=== PATIENT | female | born 1990 | race Caucasian/White ===

== ENCOUNTER 2016-06-20 10:37 | Emergency (ER) | payer BC, MEDICAID ==
[~2016-06-20] VITALS: Ht 162.6 cm; Wt 54.4 kg
[~2016-06-20 10:37] MED LIST: AMARYL 2MG TABLE2 MG PO; AMARYL 4MG. TAB4 MG PO; AMOXICILLIN &500 MG PO; AMOXICILLIN 50500 MG PO; ANUSOL-HC25 M1 RC; ASPIRIN 81MG TA81 MG PO; BACTRIM DS 8001 TA1 PO; BACTRIM DS 8001 TAB PO; BACTROBAN2% TP; BENADRYL 50MG C50 MG PO; BUSPAR 5MG TAB5 MG PO; CIPROFLOXACIN500 MG PO; DARVOCET-N 1001 EACH PO; DICLOFENAC 50MG50 MG PO; DIFLUCAN 100MG100 MG PO; DOCUSATE SODIU100 MG PO; FAMOTIDINE10 MG PO; FLAGYL500 M1 PO; FLEXERIL10 M1 PO; FLONASE 50 MCG16 GM; FOLIC ACID 1MG T1 MG PO; GLIMEPIRIDE 2MG2 MG PO; GLYNASE PO; HUMALOG100 U/M1 SC; HUMALOG100 U/ML SC; HUMULIN 70100 UNITS/ SC; HYDROCORTISONE1% EX; IBUPROFEN400 MG PO; INDERAL 20MG. T20 MG PO; IRON TABLETS325 MG PO; KEFLEX 500MG.500 MG PO; LACTULOSE10 GM/15 M PO; LANTUS INS100 UNITS/ SC; LEVAQUIN500 MG PO; LEVEMIR100 U/ML SC; LORTAB 5/500 501 TAB PO; MEDROL 4MG. DOSE4 MG PO; METFORMIN500 MG PO; METOPROLOL50 MG PO; MIRALAX17 GM/PACK PO; MULTI VITAMINS1 TAB PO; MULTIVITAMIN1 TA1 PO; NAPROSYN 500MG500 MG PO; NAPROSYN500 M1 PO; NOMEDS *; NOVOLIN 70/30 710 ML SC; NOVOLOG MIX 70/10 ML SC; PHENERGAN 25MG.25 M1 PO; PHENERGAN25 M3 PO; PRENATAL PLUS1 TA1 PO; PRILOSEC20 M1 PO; PRILOSEC40 MG PO; PROTONIX 40MG T40 MG PO; PYRIDIUM 200MG200 MG PO; RANITIDINE HCL150 MG PO; SEPTRA DS 800 M1 TAB PO; SPRINTEC 35 MCG1 TAB PO; TAMIFLU 75MG CA75 MG PO; TORADOL10 MG PO; TRAMADOL50 M1 PO; TRIAMCINOLON EX; TYLENOL ES500 MG PO; ULTRAM 50 MG TA50 MG PO; VOLTAREN75 MG PO; ZITHROMAX 250M250 MG PO; ZITHROMAX Z PA250 MG PO; ZOFRAN4 MG PO; Zofran4 MG PO
--- NOTE | 2016-06-20 11:09 | Urgent Treatment Center Report ---
History of Present Issue Date/Time Seen by Provider 06/20/16 1053 Visit Reason Pt arrived:Walked Presenting Problem:PT STATES LEFT SHOULDER PAIN THAT RADIATES UP HER NECK IF SHE TRIES TO MOVE HER LEFT ARM. STATES PAIN TO LEFT SIDE OF HEAD. STATES SLIGHT SWELLING TO SHOULDER. DENIES INJURY. STATES TAKING TYLENOL AT 0500 AND USING ICE PACK TO SHOULDER Location if Accident: Onset of symptoms date/time:/ or onset unknown for:MEDICAL HX UNKNOWN Have you (or family members/close friends) recently traveled outside the [place]? N If Yes, where/when: Have you had exposure to infectious disease within the past month? TB? Other? Specify: Type I DM c/o left shoulder pain starting last night while trying to fall asleep. Pain and stiffness progressively getting worse despite applying ice x 20 mins 2-3 times and taking tylenol multiple times. last dose around 0500, 6 hours ago. Reports initally left posterior shoulder seemed "some" swollen but that resolved w/ ice. Pain 8/10, worse in left posterior shoulder but radiating up into neck and down into upper arm. Worse w/ shoulder movement and deep breaths. 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 Described as constant squeezing/aching w/ intermittent sharp pains. Has felt SOA at times, "especially after walking". Recalls she did type a report for school yesterday, taking approx 40 minutes, but otherwise, no known injury. Denies N/T. Full ROM left fingers and wrist without pain but ROM elbow, shoulder and neck increases pain. Source patient Exam Limitations clinical condition (refusing some mvmts d/t pain) ALLERGIES Coded Allergies: Penicillins (I-HIVES 03/17/16) codeine (I-HIVES 03/17/16) latex (I-RASH 03/17/16) Home Medications Active Scripts Azithromycin (Zithromycin (Z-CELY) 250MG Tab) 250 MG PO DAILY #6 TAB Prov: 06/14/16 Fluticasone Propionate (Flonase 50 Mcg Nasal [place]) 2 SPRAY NA DAILY #1 BOT Prov: 06/14/16 ONDANSETRON HCL (Zofran 4MG Tab) 4 MG PO Q6HP PRN NAUSEA AND VOMITING #40 TAB Prov: 03/17/16 Reported Medications Insulin Lispro, Recombinant (Humalog 100 UNITS/ML 10ML) 0 UNITS SC ACHS #20 INSULIN LISPRO (Humalog) 0.475 UNITS SC CONSTANT NORGESTIMATE-ETHINYL ESTRADIOL (Sprintec 28 Day Tablet) 1 TAB PO QHS History Medical History General CAD? No Angina: Yes AK: No Hypertension? No Hyperlipidemia? No CHF? No DVT? No PE? No COPD? No Asthma? Yes Anemia? No GERD? No Gastric ulcers? No GI Bleed? No Hernia? Yes Thyroid Problems? No Hypothyroidism? No CVA? No Seizures? No Diabetes? Yes Insulin Dependent: Yes Insulin Pump: Yes Home FSBS? Yes Renal Insuffiency? No UTI? Yes Stones? No BPH? No GB Disease: Yes Nephritic Syndrome? No Asplenia? No Hepatitis? No Sickle Cell Disease? No Arthritis? No Migraines? No Cataracts? No Glaucoma? No MRSA? No HIV? No TB? No Anxiety? Yes Depression? No Cancer? No More? Yes Additional hx: GASTROPROTHESIA Immunization HX DT/Tetanus 1-4 Years Ago Flu 2014-FSN Pneumonia Refuses Surgical Hx Previous Surgery?Y LASER EYE SURGERY D&E KHADIJAH HERNIA REPAIR TEETH EXTRACTION GALLBLADDER COLONOSCOPY EGD PIN PUT IN LT 5TH TOE ABCESS DRAINAGE RECTUM LIBRARIAN SPECIAL LIBRARY Hx LMP Now Family History Family HX Diabetes Yes CAD Yes Hypertension Yes Hyperlipidemia Yes Cancer Yes TB No Social History Smoking Hx Smoker: Never Smoker Tobacco: No Packs/day N/A Alcohol Alcohol: No Review of Systems All Other Systems Reviewed and Negative Constitutional denies chills, denies fever, denies malaise, denies weakness Respiratory see HPI, denies cough, denies stridor, denies wheezing Cardiovascular chest pain (at times, "from my shoulder"), denies edema, denies palpitations, denies syncope Gastrointestinal denies no symptoms reported Musculoskeletal see HPI, denies back pain Skin denies lesions, denies rash Psychiatric/Neurological see HPI Physical Exam Vital Signs Vital Signs Date Time Temp Pulse Resp B/P Pulse O2 O2 Flow FiO2 Ox Delivery Rate 06/20 1114 18 06/20 1043 98.7 70 18 125/81 97 General Appearance mild distress (guarding left arm) Neck normal inspection, full range of motion, tender midline (consistent w/ trapezius ) Respiratory Status Yes: trachea midline, tender on palpation, pain on inspiration. No: respiratory distress (no cough), use of accessory muscles, pain on expiration. Lung Sounds anterior: lungs clear. posterior: lungs clear. bilateral: lungs clear. Cardiovascular regular rate/rhythm, no murmur Peripheral Pulses Pulses normal Yes (radial) Back normal inspection, no vertebral tenderness, bowel/bladder continent, gait normal, muscle spasm (left trapezius), tenderness throughout left posterior shoulder/upper back, consistent w/ outline of trapezius muscle Extremities normal inspection, limited range of motion (left shoulder/elbow), moderately limited ROM in all directions.....refusing to move when increasing pain Strength 3 Upper Ext (L) ("too painful"), 5 Upper Ext (R) Neurologic alert, no motor/sensory deficits, oriented x 3 Reflexes Reflexes normal Yes Mental status normal mood/affect Skin normal color, warm/dry Medical Decision Making LABS/Meds/Orders Pt receiving controlled substance in ED? No Results/Orders Current Medication Orders Sig/Corina Start time Last Medication Dose Route Stop Time Status Admin Ketorolac 0 .STK-MED ONE 06/20 1102 DC Tromethamine .ROUTE Ketorolac 60 MG ONCE ONE 06/20 1100 DC 06/20 Tromethamine IM 06/20 1101 1114 XRAY/CT/US XRAY/CT/US XRAY chest XR interpretation by reviewed by me, discussed w/radiologist (read Dr. Bragg's report) Xray Results normal/NAD Progress [facility] Progress Notes Date 06/20/16 Time 1111 Comment Returned from xray Departure Departure Time of Disposition 1146 Disposition DC Home or Self Care(routine) Clinical Impression Primary Impression: Trapezius muscle strain Qualifiers: Encounter type: initial encounter Laterality: left Qualified Code: S46.812A - Strain of other muscles, fascia and tendons at shoulder and upper arm level, left arm, initial encounter Secondary Impressions: Pain aggravated by breathing, Trapezius muscle spasm Condition STABLE Referrals Johnathan COYNE,Cullen (Family) Follow up immediately for new or worsening symptoms OR no noticeable improvement over the next 48 hours. Patient Instructions Cyclobenzaprine, DI for Back Spasm, DI for Muscle Strain, Nonsteroidal Anti-inflammatory Drugs (Alternative Therapy) Additional Instructions Ibuprofen every 6-8 hours with meal as needed for pain/inflammation. Remember you had a toradol shot, similiar anti-inflammatory in clinic around 1115 No additional anti-inflammatories like motrin, aleve, advil with the above amount of ibuprofen. You CAN still alternate with Tylenol. Moist heat [id number] 3-4 times a day to left posterior shoulder Muscle relaxer every 8 hours as needed but remember, it WILL cause drowsiness. You can NOT take it and drive, operate machinary or care for small children Keep your shoulder, arm, neck active. No movement leads to more stiffness. However, take it easy too and avoid heavy lifting, pushing, pulling. Discharge Counseling Counseled pt/family regarding diagnosis, test results, medications/RX, home care, follow up needs Prescriptions Current Visit Scripts Ibuprofen (Ibuprofen 800MG) 800 MG PO QIDP PRN muscle pain/inflammation #15 TAB take with meal Cyclobenzaprine Hcl (Cyclobenzaprine) 5 MG PO TIDP PRN muscle spasm #10 TAB at 1156
--- NOTE | 2016-06-20 11:42 | RADIOLOGY REPORT PS360 ---
CHEST(2 VIEWS-NOT PORTABLE) HISTORY: left shoulder pain with SOA, worse w/ exertion ORDERING PHYSICIAN: SHIRIN MIN APRN PATIENT AGE: 26 years COMPARISON: None available FINDINGS: The cardiomediastinal silhouette and pulmonary vascularity are within normal limits. The lungs are clear without infiltrates, suspicious nodules, or pleural effusions. No acute bony abnormalities. IMPRESSION: Negative chest, no acute finding
[2016-06-20] MEDS ORDERED: IBUPROFEN800 MG PO (11:52)
[2016-06-20] MEDS ORDERED: CYCLOBENZ5 MG PO (11:52)
[2016-06-20 11:56] VITALS: BP 125/81
== END 2016-06-20 11:57 | disposition home or self-care (01) ==
LOC: UTC 10:37
DX: S46.812A Strain of other muscles, fascia and tendons at shoulder and upper arm level, left arm, initial encounter (principal); E11.9 Type 2 diabetes mellitus without complications; Z79.4 Long term (current) use of insulin

== ENCOUNTER → 2016-06-30 | Outpatient (CLI) | payer BC, MEDICAID ==
[~2016-06-30] MED LIST changes: +CYCLOBENZ5 MG PO; +IBUPROFEN800 MG PO
--- NOTE | 2016-06-30 15:55 | RADIOLOGY REPORT PS360 ---
CT ABD PELVIS W/ CONTRAST CLINICAL INDICATION: Lower abdominal pain with painful bowel movements and constipation RECTAL ABCESS ORDERING PHYSICIAN: NIALL RUBIO APRN PATIENT AGE: 26 years COMPARISON: 04/03/2016 TECHNIQUE: Axial images obtained with sagittal and coronal reformats. PROCEDURE: Oral Contrast: Gastroview IV Contrast: 75 mL [id number]. FINDINGS: Lung bases are clear. The liver, spleen, adrenal glands, pancreas, and kidneys have an unremarkable appearance. There is been a prior cholecystectomy. No biliary dilatation. There are few scattered small mesenteric lymph nodes nonspecific. No intestinal obstruction or free air is evident. No evidence of appendicitis or diverticulitis. Bilobular left ovarian cyst noted at 2.8 cm. No pelvic mass or abnormal fluid collection. No evidence of perirectal abscess. No presacral or perirectal thickening apparent. There is prominent hypoattenuation of the endometrium which is nonspecific. No acute bony anomalies. IMPRESSION: 1. No acute intra-abdominal or pelvic pathology evident. 2. Mild constipation. No obvious perirectal abscess. 3. 2.8 cm left ovarian cyst
== END ==
LOC: RAD 11:58
DX: K61.1 Rectal abscess (principal)
CPT/HCPCS: Q9967

== ENCOUNTER → 2016-11-21 | Outpatient (CLI) | payer BC, MEDICAID ==
[~2016-11-21] MED LIST changes: +OMNICEF 300 MG300 MG PO
[2016-11-21 09:55] LABS: URINE BILIRUBIN - DIPSTICK NEGATIVE (NEG); URINE BLOOD NEGATIVE (NEG)
[2016-11-21 11:56] LABS: BUN 10 mg/dL (7-18)
[2016-11-21 12:15] LABS: LYMPH # 2.1 K/mm3 (0.7-4.5); LYMPH % 27.6 % (10-50.0)
[2016-11-21 12:23] LABS: GFR (ESTIMATED) 102 ML/MIN (59-)
== END ==
LOC: LAB 09:26
PROVIDERS: Obstetrics & Gynecology
DX: Z01.812 Encounter for preprocedural laboratory examination (principal); R10.2 Pelvic and perineal pain

== ENCOUNTER 2016-11-23 07:14 | Day surgery (SDC) | payer BC, MEDICAID ==
[~2016-11-23] VITALS: Ht 162.6 cm; Wt 54.4 kg
--- NOTE | 2016-11-23 09:00 | Operative Note ---
Procedure/Operative Record Date of Procedure: 11/23/16 Referring physician: Dr. Mann Pre-op diagnosis: Pelvic pain Post-op diagnosis: 1. Pelvic pain. 2. Endometriosis. Procedure performed: 1. Diagnostic laparoscopy. 2. Fulguration of endometrial implants. Surgeon: Abhilash Ospina Anesthesia: MAX Sequeira [facility] Indications: Pelvic pain` Description of procedure: After the patient was prepped and draped in usual fashion and general anesthesia was administered, examination under anesthesia revealed a normal-sized anteverted uterus, with no adnexal masses. A weighted speculum was placed within the posterior fourchette of the vagina, and the anterior lip of the cervix was grasped with a single-tooth tenaculum. A HUMI uterine elevator was inserted into the endocervix, and the bulb inflated for easy uterine manipulation during the laparoscopy. Regloving, the skin on either side of the umbilicus was tented up with towel clips. A small incision was made in the base the umbilicus with a knife, and a Veress needle was inserted into the abdominal cavity. After demonstration of negative pressure, and adequate phisoperitoneum was created with carbon dioxide gas. The Veress needle was then replaced with trocar and cannula, using the [employer] system, and the trocar replaced with a laparoscope. The uterus was of normal size and configuration. Each tube was followed out to its fimbriated end, which appeared free. 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 Each ovary appeared completely normal. The reflection of the bladder peritoneum was normal, as was the upper abdomen. The gallbladder was surgically absent. The appendix was not able to be visualized. There were 20 mL of serosanguineous fluid in the cul-de- sac, and this was suctioned. There was a small amount of blotchy reddish and yellowish endometrial implants along the RIGHT uterosacral ligament. At the junction of the LEFT uterosacral ligament and the base of the broad ligament, a 2 cm dark blue endometrial implant was noted. Just above this were 3 distinct peritoneal pocket defect. There was no other pathology noted. All the endometrial implants and the peritoneal pocket defects were fulgurated. The instruments were then removed under direct visualization after the Feliciano peritoneum identified then reduced. A small loop of bowel protruded from the umbilical incision, consistent with a small umbilical hernia. This was replaced, and the fascia was closed with a running pursestring suture of 2-0 Vicryl. The skin incision was infused with a dilute solution of Marcaine, as a local anesthetic, and closed with a subcuticular suture of 3-0 Vicryl. The sponge and needle counts correct. The estimated blood loss was less than 10 mL. The HUMI was deflated and removed. The patient tolerated the procedure well, and was taken to PACU in excellent condition. She'll be discharged today, if her vital signs are stable. EBL (ml): 10 Complications: None Specimens: None at 0900
--- NOTE | 2016-11-23 09:12 | Anesthesia Record ---
Anesthesia Record Part II Discharge time: 914 Destination: Same day surgery PACU nurse assessment review? Yes Patient is: Nasal O2 Anesthesia complications? No at 0912
--- NOTE | 2016-11-23 09:12 | Anesthesia Record ---
Anesthesia Record Part I Total IV fluids: 250 EBL (ml): 10 Urine Output: 400 B/P: 133/68 % SaO2: 98 Pulse: 64 Resps: 18 Temp: 97.6 Patient is: Nasal O2 Stable to PACU at: 0905 at 0912
[2016-11-23 13:22] VITALS: BP 115/63
== END 2016-11-23 11:15 | disposition home or self-care (01) ==
LOC: SDC 07:14
PROVIDERS: Obstetrics & Gynecology
PROC: 0U544ZZ Destruction of Uterine Supporting Structure, Percutaneous Endoscopic Approach (ICD-10-PCS; principal; 2016-11-23 08:45)
DX: N80.3 Endometriosis of pelvic peritoneum (principal); R10.2 Pelvic and perineal pain
CPT/HCPCS: J0131; J2405; J2710

== ENCOUNTER → 2017-01-11 | Outpatient (CLI) | payer BC, MEDICAID ==
[2017-01-11 11:11] LABS: HEMOGLOBIN 13.2 g/dL (12.2-16.2); LYMPH # 1.3 K/mm3 (0.7-4.5); LYMPH % 21.7 % (10-50.0)
[2017-01-11 11:22] LABS: BUN 13 mg/dL (7-18)
[2017-01-11 11:25] LABS: GFR (ESTIMATED) 87 ML/MIN (59-)
--- NOTE | 2017-01-11 14:09 | RADIOLOGY REPORT PS360 ---
CT ABD PELVIS W/ CONTRAST COMPARISON: CT scan abdomen pelvis 06/30/2016 HISTORY: Right lower quadrant pain, fever TECHNIQUE: Multiaxial scans obtained from hemidiaphragms the pelvic floor and were performed with IV and oral contrast. Sagittal and coronal formats were evaluated as well. FINDINGS: The lower lung pitts are clear. The liver spleen and pancreas appear normal. The stomach is distended with ingested food particles but otherwise appears normal. There has been a previous cholecystectomy. The adrenal glands are normal. The kidneys are normal in size and show symmetrical function both appearing normal. The small bowel is normal. I do not definite identify the appendix but there are no pericecal inflammatory changes. There is large amount stool in the distal transverse and descending and sigmoid colon.. Uterus is normal in size and in the midline. There is a small amount of cul-de-sac fluid likely physiologic. IMPRESSION: Findings most consistent with constipation, no other significant abnormality noted.
== END ==
LOC: LAB 10:51
PROVIDERS: Nurse Practitioner Family
DX: R50.9 Fever, unspecified (principal); R10.9 Unspecified abdominal pain; R10.31 Right lower quadrant pain
CPT/HCPCS: Q9967